=== PATIENT | female | born 1935 | race Caucasian/White ===

== ENCOUNTER → 2018-02-01 | Outpatient (CLI) | payer MEDICARE, BC ==
[~2018-02-01] MED LIST: ACE3 PO; ALEN70TA43 PO; ASPI-1471 PO; ASPI81TA15 PO; ATOR-1 PO; CALC-797 PO; CALC1CAP19 PO; DIPH0.5D12 IM; HYDR12.556 PO; HYDR12.558 PO; LUTE20CA11 PO; MAGN400C PO; MAGN400T36 PO; OMEG-11 PO; PNEU0.5D3 IM; ZEAX100P
== END ==
LOC: LAB 08:35
PROVIDERS: ATTEND Emergency Medicine
DX: Z12.11 Encounter for screening for malignant neoplasm of colon (principal)
CPT/HCPCS: 82274

== ENCOUNTER → 2019-01-24 | Outpatient (CLI) | payer MEDICARE, BC ==
[~2019-01-24] MED LIST changes: -DIPH0.5D12 IM; +DIPH0.5S2 IM
--- NOTE | 2019-01-29 09:40 | RADIOLOGY IMAGING REPORT ---
FACILITY: [facility] PATIENT NAME: ADEEL SOOD : [id number] MR: [id number] V: [id number] EXAM DATE: ORDERING PHYSICIAN: DINA MALAGON TECHNOLOGIST: Krystin Posada PROCEDURE: BILATERAL DIGITAL SCREENING MAMMOGRAM WITH CAD ASSISTED INTERPRETATION & 3D TOMOSYNTHESIS REASON FOR STUDY: Screening FAMILY HISTORY OF BREAST CANCER: None BREAST PROCEDURES/TREATMENTS: Aspiration of both breasts in the COMPARISON: 01/26/17, 01/21/16, 12/09/13, 11/25/13 VIEWS OBTAINED: Bilateral 2D & 3D full field CC & MLO BREAST DENSITY: The breasts are heterogeneously dense which can obscure small masses. MAMMOGRAM FINDINGS: The parenchymal pattern has remained stable allowing for difference in mammographic technique & patient positioning. IMPRESSION: BIRADS 1: Negative. DIAGNOSTIC CATEGORY 1--NEGATIVE. RECOMMENDATIONS: ROUTINE MAMMOGRAM AND CLINICAL EVALUATION. Dictated by: Sharita Farmer M.D. on 01/28/2019 at 12:34 Transcribed by: MELODY on 01/28/2019 at 13:18 Approved by: Sharita Farmer M.D. on 01/29/2019 at 9:39 [facility]
== END ==
LOC: MAMO 01:20
PROVIDERS: ATTEND Emergency Medicine
DX: Z12.31 Encounter for screening mammogram for malignant neoplasm of breast (principal)
CPT/HCPCS: 77063; 77067

== ENCOUNTER → 2019-02-20 | Outpatient (CLI) | payer MEDICARE, BC | LOC: LAB 10:04 | PROVIDERS: ATTEND Surgery | DX: L82.1 Other seborrheic keratosis (principal) | CPT/HCPCS: 88305 ==